=== PATIENT | female | born 1930 | race Caucasian/White ===

== ENCOUNTER 2017-06-08 21:49 | Emergency (ER) | payer OTHER ==
[~2017-06-08] VITALS: Ht 162.6 cm; Wt 65.8 kg
[~2017-06-08 21:49] MED LIST: AMARIL; AVAPRO300 MG; LANTUS100 U/ML; LIRICA; PEPCID40 MG PO; PLAVIX75 MG; PROSOM2 MG; PROTONIX40 MG PO
[2017-06-08] MEDS ORDERED: ZOCOR5 MG (22:16)
[2017-06-08] MEDS ORDERED: COZAAR25 MG (22:16)
[2017-06-08] MEDS ORDERED: LANTUS SOL100 UNIT/1 (22:16)
[2017-06-09] MEDS ORDERED: NITROFURANTOIN100 MG PO (07:47)
== END 2017-06-09 07:50 | disposition home or self-care (01) ==
LOC: ER 21:49
DX: N39.0 Urinary tract infection, site not specified (principal); J11.1 Influenza due to unidentified influenza virus with other respiratory manifestations

== ENCOUNTER 2021-06-20 11:04 | Inpatient (IN) | payer OTHER ==
[~2021-06-20] VITALS: Ht 170.2 cm; Wt 60.8 kg
[~2021-06-20 11:04] MED LIST changes: +COZAAR25 MG; +LANTUS SOL100 UNIT/1; +NITROFURANTOIN100 MG PO; +ZOCOR5 MG
[2021-06-20] MEDS ORDERED: GLIMEPIRIDE4 MG (11:37)
[2021-06-20] MEDS ORDERED: NORVASC2.5 M1 (11:38)
== END 2021-06-27 13:17 | disposition home or self-care (01) | DRG 291 ==
LOC: ER 11:04 → MEDJ 23:03 → EDBD 23:03 → MEDJ 06-21 10:34
PROVIDERS: ADMIT Internal Medicine; ATTEND Internal Medicine
PROC: 4A12X4Z Monitoring of Cardiac Electrical Activity, External Approach (ICD-10-PCS; 2021-06-20)
PROC: BW24ZZZ Computerized Tomography (CT Scan) of Chest and Abdomen (ICD-10-PCS; 2021-06-20)
PROC: 3E0F7GC Introduction of Other Therapeutic Substance into Respiratory Tract, Via Natural or Artificial Opening (ICD-10-PCS; 2021-06-20)
PROC: 5A0945A Assistance with Respiratory Ventilation, 24-96 Consecutive Hours, High Flow/Velocity Cannula (ICD-10-PCS; 2021-06-20)
PROC: B246ZZZ Ultrasonography of Right and Left Heart (ICD-10-PCS; principal; 2021-06-21)
PROC: BG44ZZZ Ultrasonography of Thyroid Gland (ICD-10-PCS; 2021-06-21)
DX: I13.0 Hypertensive heart and chronic kidney disease with heart failure and stage 1 through stage 4 chronic kidney disease, or unspecified chronic kidney disease (principal); I50.33 Acute on chronic diastolic (congestive) heart failure; N39.0 Urinary tract infection, site not specified; I50.1 Left ventricular failure, unspecified; I25.10 Atherosclerotic heart disease of native coronary artery without angina pectoris; E11.22 Type 2 diabetes mellitus with diabetic chronic kidney disease; E11.42 Type 2 diabetes mellitus with diabetic polyneuropathy; N18.30 Chronic kidney disease, stage 3 unspecified; Z79.4 Long term (current) use of insulin; E04.1 Nontoxic single thyroid nodule; B96.29 Other Escherichia coli [E. coli] as the cause of diseases classified elsewhere; Z20.822 Contact with and (suspected) exposure to COVID-19; E78.5 Hyperlipidemia, unspecified